=== PATIENT | male | born 1995 | race African-American/Black ===

== ENCOUNTER 2017-04-04 06:56 | Emergency (ER) | payer MEDICAID ==
[~2017-04-04] VITALS: Ht 167.6 cm; Wt 86.3 kg
[2017-04-04] MEDS ORDERED: KETOROLAC 60MG/2ML VIAL IM ONE (13:15)
[2017-04-04 13:39] VITALS: BP 130/81
== END 2017-04-04 13:40 | disposition home or self-care (01) ==
LOC: ER 07:36
DX: K04.7 Periapical abscess without sinus (principal); R22.0 Localized swelling, mass and lump, head; F12.10 Cannabis abuse, uncomplicated
CPT/HCPCS: 96372; 99283; J1885; Z7610